=== PATIENT | female | born 1985 | race Hispanic/Latino ===

== ENCOUNTER 2019-01-09 00:12 | Emergency (ER) | payer OTHER ==
--- OUTSIDE RECORDS SUMMARY | 2019-01-09 00:15 | XMS REPORT ---
:1985 [facility] Address [address] [place] [address] Care Team Providers Name Role Phone Unavailable Unavailable Unavailable Problems This patient has no known problems. Allergies, Adverse Reactions, Alerts This patient has no known allergies or adverse reactions. Medications This patient has no known medications.
--- OUTSIDE RECORDS SUMMARY | 2019-01-09 00:15 | XMS REPORT | Clinical Summary ---
:1985 Author Organization [facility] Address [address] [place] [address] Care Team Providers Name Role Phone AntoineEvelioNubia Ke ARBORICULTURE TEACHER-C Primary Care Provider Allergies Active Allergy Reactions Severity Noted Date Comments Hydrocodone-Acetaminophen Itching 11/30/2018 "sweat, heart beats fast, itch" Medications Medication Sig Dispensed Refills Start Date End Date Status omeprazole (PriLOSEC) 20 Take 20 mg by 0 Active MG capsule mouth 2 (two) times a day. cyclobenzaprine Take 10 mg by 0 Active (FLEXERIL) 10 mg tablet mouth daily as needed for muscle spasms. Active Problems Problem Noted Date Chest pain 12/07/2018 Hyperparathyroidism 12/01/2018 Hiatal hernia 12/01/2018 Encounters Date Type Specialty Care Team Description 12/05/2018 - Hospital Encounter General Internal Jack Villegas, 12/07/2018 Cristina Norwood MD 12/01/2018 Anesthesia Event General Surgery Jyotsna Hart FNP 12/01/2018 Surgery General Surgery Jack Villegas, HIATAL HERNIA Zaki Norwood MD REPAIR WITH ROBOTIC ASSIST 12/01/2018 - Hospital Encounter General Internal Jack Villegas, 12/02/2018 Cristina Norwood MD 11/30/2018 Pre-Admit Testing Pre-Admission Jack Villegas Preop testing Appointment Testing Zaki Norwood MD (Primary Dx) after 01/08/2018 Family History Medical History Relation Name Comments Diabetes Father Diabetes Mother Heart disease Mother Relation Name Status Comments Father Alive Mother Alive Social History Tobacco Use Types Packs/Day Years Used Date Never Smoker Smokeless Tobacco: Never Used Alcohol Use Drinks/Week oz/Week Comments Yes rarely Sex Assigned at Date Recorded Not on file Job Start Date Occupation Industry Not on file Not on file Not on file Travel History Travel Start Travel End No recent travel history available. Last Filed Vital Signs Vital Sign Reading Time Taken Blood Pressure 114/57 12/07/2018 11:35 AM CERTIFIED NUCLEAR MEDICINE TECHNOLOGIST Pulse 78 12/07/2018 11:35 AM CERTIFIED NUCLEAR MEDICINE TECHNOLOGIST Temperature 36.4 C (97.5 F) 12/07/2018 11:35 AM CERTIFIED NUCLEAR MEDICINE TECHNOLOGIST Respiratory Rate 18 12/07/2018 11:35 AM CERTIFIED NUCLEAR MEDICINE TECHNOLOGIST Oxygen Saturation 100% 12/07/2018 11:35 AM CERTIFIED NUCLEAR MEDICINE TECHNOLOGIST Inhaled Oxygen Concentration - - Weight 67 kg (147 lb 9.6 oz) 12/07/2018 4:56 AM CERTIFIED NUCLEAR MEDICINE TECHNOLOGIST Height 149.9 cm (4' 11") 12/05/2018 3:58 AM CERTIFIED NUCLEAR MEDICINE TECHNOLOGIST Body Mass Index 29.81 12/07/2018 4:56 AM CERTIFIED NUCLEAR MEDICINE TECHNOLOGIST Plan of Treatment Health Maintenance Due Date Last Done Comments CERVICAL CANCER SCREENING 2006 INFLUENZA VACCINE 05/26/2018 Procedures Procedure Name Priority Date/Time Associated Comments Diagnosis FL UGI W KUB Routine 12/06/2018 2:18 Results for this PM CERTIFIED NUCLEAR MEDICINE TECHNOLOGIST procedure are in the results section. ESTIMATED GFR Routine 12/05/2018 4:40 Results for this AM CERTIFIED NUCLEAR MEDICINE TECHNOLOGIST procedure are in the results section. BASIC METABOLIC PANEL Routine 12/05/2018 4:40 Results for this AM CERTIFIED NUCLEAR MEDICINE TECHNOLOGIST procedure are in the results section. HC COMPLETE BLD COUNT Routine 12/05/2018 4:40 Results for this W/AUTO DIFF AM CERTIFIED NUCLEAR MEDICINE TECHNOLOGIST procedure are in the results section. ESTIMATED GFR Routine 12/02/2018 6:30 Results for this AM CERTIFIED NUCLEAR MEDICINE TECHNOLOGIST procedure are in the results section. BASIC METABOLIC PANEL Routine 12/02/2018 6:30 Results for this AM CERTIFIED NUCLEAR MEDICINE TECHNOLOGIST procedure are in the results section. HC COMPLETE BLD COUNT Routine 12/02/2018 6:30 Results for this W/AUTO DIFF AM CERTIFIED NUCLEAR MEDICINE TECHNOLOGIST procedure are in the results section. AR AN ELECTIVE Routine 12/01/2018 8:17 ENDOTRACHEAL AIRWAY AM CERTIFIED NUCLEAR MEDICINE TECHNOLOGIST Procedure Note - Kajal Nelson CRNA - 12/01/2018 8:17 AM CERTIFIED NUCLEAR MEDICINE TECHNOLOGIST ANESTHESIA INTUBATION Performed by: Kajal Nelson CRNA Authorized by: Evaristo Ashley MD Location: OR Urgency: Elective Difficult Airway: Yes Anesthesiologist: Evaristo Ashley MD Resident/LAUNDERER HAND/AA: Kajal Nelson CRNA Performed by: resident/LAUNDERER HAND/AA Preoxygenated with 100% O2: Yes Mask Ventilation: Easy mask Final Airway Type: Endotracheal airway Final Endotracheal Airway: ETT Cuffed: Yes Technique Used: Direct laryngoscopy Insertion Site: Oral Blade Type: Warner Laryngoscope Blade/Videolaryngoscope Blade Size: 2 ETT Size (mm): 7.0 Cuff at minimum occlusion pressure: Yes Measured from: Lips ETT to Lips (cm): 23 Placement Verified by: CO2 detection Laryngoscopic view: Grade I - full view of glottis Number of Attempts at Approach: 1 POC GLUCOSE Routine 12/01/2018 7:24 AM Results for this CERTIFIED NUCLEAR MEDICINE TECHNOLOGIST procedure are in the results section. HCG QUALITATIVE, Routine 11/30/2018 2:21 PM Preop testing Results for this SERUM SCREEN CERTIFIED NUCLEAR MEDICINE TECHNOLOGIST procedure are in the results section. TYPE AND SCREEN Routine 11/30/2018 2:21 PM Preop testing Results for this CERTIFIED NUCLEAR MEDICINE TECHNOLOGIST procedure are in the results section. HC COMPLETE BLD Routine 11/30/2018 2:21 PM Preop testing Results for this COUNT W/AUTO DIFF CERTIFIED NUCLEAR MEDICINE TECHNOLOGIST procedure are in the results section. after 01/08/2018 Results FL UGI W KUB (12/06/2018 2:18 PM CERTIFIED NUCLEAR MEDICINE TECHNOLOGIST) Narrative Performed At EXAMINATION:FL UGI W KUB RADIANT CLINICAL HISTORY:recenthernia repair now presenting with pneumothorax COMPARISON:None. TECHNIQUE:UPPER GI SERIES was performed with Gastrografin FLUOROSCOPIC TIME:0.8 minutes. Exposure=19 mGy IMPRESSION: From the narrow fabrics weaver view, retained contrast material is seen within the colon. Patient appears to be status post cholecystectomy. An IUD is within the lower pelvis. Some diaphragmatic air is also seen on the right likely due to recent surgery. 1.Esophagus:Esophagus was distensible. No leak was detected with real-time imaging. The mucosa and motility were within normal limits. There is no evidence of stricture. 2.Gastroesophageal junction:No evidence of hiatal hernia. No reflux. 3.Stomach:Status post partial gastrectomy. Otherwise normal in distensible and demonstrates normal contours and mucosal pattern. 4.Duodenum:Bulb and sweep are normal. The duodenal-jejunal junction is in the normal expected position. [facility]-[id number] Procedure Note Interface, Radiology Results Incoming - 12/06/2018 2:33 PM CERTIFIED NUCLEAR MEDICINE TECHNOLOGIST EXAMINATION: FL UGI W KUB CLINICAL HISTORY: recent hernia repair now presenting with pneumothorax COMPARISON: None. TECHNIQUE: UPPER GI SERIES was performed with Gastrografin FLUOROSCOPIC TIME: 0.8 minutes. Exposure=19 mGy IMPRESSION: From the narrow fabrics weaver view, retained contrast material is seen within the colon. Patient appears to be status post cholecystectomy. An IUD is within the lower pelvis. Some diaphragmatic air is also seen on the right likely due to recent surgery. 1. Esophagus: Esophagus was distensible. No leak was detected with real-time imaging. The mucosa and motility were within normal limits. There is no evidence of stricture. 2. Gastroesophageal junction: No evidence of hiatal hernia. No reflux. 3. Stomach: Status post partial gastrectomy. Otherwise normal in distensible and demonstrates normal contours and mucosal pattern. 4. Duodenum: Bulb and sweep are normal. The duodenal-jejunal junction is in the normal expected position. [facility]-[id number] Performing Organization Address City/[facility]/Zipcode Phone Number [facility] [phone] [place] [address] Estimated GFR (12/05/2018 4:40 AM CERTIFIED NUCLEAR MEDICINE TECHNOLOGIST)Only the most recent of2 resultswithin the time period is included. Estimated GFR >=90 mL/min/1.73 m2 [facility] CatergoryUnitsInterpretation G1 >=90 Normal or high G2 60-89Mildly decreased [id number] to moderately decreased [id number] to severely decreased G4 15-29Severely decreased G5 <15Kidney failure The eGFR was calculated using the Chronic Kidney Disease Epidemiology Collaboration (CKD-EPI) equation. Interpretation is based on recommendations of the National Kidney Foundation-Kidney Disease Outcomes Quality Initiative (NKF-KDOQI) published in 2014. Specimen Plasma specimen Performing Organization Address City/[facility]/Zipcode Phone Number [facility] DEPARTMENT OF PATHOLOGY [address] [place] [address] AND GENOMIC MEDICINE [facility] [address] CBC with platelet and differential (12/05/2018 4:40 AM CERTIFIED NUCLEAR MEDICINE TECHNOLOGIST)Only the most recent of3 resultswithin the time period is included. WBC 6.0 4.5 - 11.0 k/uL [facility] RBC 3.50 (L) 4.20 - 5.50 m/uL [facility] HGB 8.2 (L) 12.0 - 16.0 g/dL [facility] HCT 26.7 (L) 37.0 - 47.0 % [facility] MCV 76.3 (L) 82.0 - 100.0 fL [facility] MCH 23.4 (L) 27.0 - 34.0 pg [facility] MCHC 30.7 (L) 31.0 - 37.0 g/dL [facility] RDW - SD 44.7 37.0 - 55.0 fL [facility] MPV 13.1 (H) 6.9 - 11.0 fL [facility] Platelet count 164 150 - 400 K/uL [facility] Nucleated RBC 0.00 /100 WBC [facility] Neutrophils 60.4 39.0 - 69.0 % [facility] Lymphocytes 27.9 25.0 - 45.0 % [facility] Monocytes 7.1 0.0 - 10.0 % [facility] Eosinophils 4.2 0.0 - 5.0 % [facility] Basophils 0.2 0.0 - 1.0 % [facility] Immature granulocytes 0.2 0.0 - 1.0 % [facility] Specimen Blood Performing Organization Address City/State/Zipcode Phone Number [facility] DEPARTMENT OF PATHOLOGY [address] [place] [address] AND GENOMIC MEDICINE [facility] [address] [place] [address] HOSPITAL Basic metabolic panel (12/05/2018 4:40 AM CERTIFIED NUCLEAR MEDICINE TECHNOLOGIST)Only the most recent of2 resultswithin the time period is included. Sodium 142 135 - 148 mEq/L [facility] Potassium 3.7 3.5 - 5.0 mEq/L [facility] Chloride 107 98 - 112 mEq/L [facility] CO2 26 24 - 31 mEq/L [facility] Anion gap 9@ANIO 7 - 15 mEq/L [facility] BUN 6 6 - 20 mg/dL [facility] Creatinine 0.52 0.50 - 0.90 mg/dL [facility] Glucose 93 65 - 99 mg/dL [facility] Calcium 8.3 8.3 - 10.2 mg/dL [facility] Specimen Plasma specimen Performing Organization Address City/[facility]/Zipcode Phone Number [facility] DEPARTMENT OF PATHOLOGY [address] [place] [address] POC glucose (12/01/2018 7:24 AM CERTIFIED NUCLEAR MEDICINE TECHNOLOGIST) POC glucose 88 65 - 99 mg/dL [facility] Comment: HOSPITAL Meter ID: [id number] Air Bag Curer: Marv Hale Performing Organization Address City/State/Zipcode Phone Number [facility] DEPARTMENT OF PATHOLOGY [address] [place] [address] [place] [address] HOSPITAL Type and screen (11/30/2018 2:21 PM CERTIFIED NUCLEAR MEDICINE TECHNOLOGIST) ABO grouping A [facility] Rh type POS [facility] Antibody screen (gel) NEG [facility] Specimen Blood Performing Organization Address City/[facility]/Zipcode Phone Number [facility] DEPARTMENT OF PATHOLOGY [address] [place] [address] hCG qualitative, serum screen (11/30/2018 2:21 PM CERTIFIED NUCLEAR MEDICINE TECHNOLOGIST) hCG qualitative, serum NegativeComment: [facility] Sensitivity of HCG test: 25 [facility] mIU/mL Specimen Blood Performing Organization Address City/[facility]/Zipcode Phone Number [facility] DEPARTMENT OF PATHOLOGY [address] [place] [address] [place] [address] HOSPITAL after 01/08/2018 Insurance Payer Benefit Plan / Group Subscriber ID Type Phone Address [employer] [facility] xxxxxxxxx HMO Advance Directives Patient has advance care planning documents on file. For more information, please contact:Nehemiah Martinez[address] [employer] [place] [address]
[2019-01-09] MEDS ORDERED: ONDANSETRON 4 MG/2 ML VIAL ONE (00:52)
[2019-01-09] MEDS ORDERED: MORPHINE 4 MG/ML SYR ONE (00:52)
[2019-01-09 01:10] LABS: Absolute Lymphocytes (CBC) 1.7 K/uL (0.7-4.9); Absolute Monocytes 0.5 K/uL (0.1-1.3); Absolute Neutrophil 3.9 K/uL (1.8-8.0); Basophils % 0.4 % (0-1.3); Eosinophils % 3.7 % (0-4.4); Hematocrit 29.4 % (36.0-45.0); Lymphocytes % 26.3 % (15.3-44.8); MPV 10.8 fL (7.6-11.3); Monocytes % 8.2 % (3.3-12.3); RBC Red Blood Cell Count 4.04 M/uL (3.86-4.86)
[2019-01-09 01:24] LABS: ALT/SGPT 27 U/L (12-78); AST/SGOT 13 U/L (15-37); Albumin 3.4 g/dL (3.4-5.0); Alkaline Phosphatase 109 U/L (45-117); BUN Blood Urea Nitrogen 13 mg/dL (7-18); Bicarbonate 28 mmol/L (21-32); Bilirubin Direct < 0.1 mg/dL (0-0.2); Bilirubin Total 0.2 mg/dL (0.2-1.0); Glucose Level 94 mg/dL (74-106); Lipase 188 U/L (73-393); Potassium 4.1 mmol/L (3.5-5.1); Protein, Total 7.2 g/dL (6.4-8.2); Sodium Level 144 mmol/L (136-145)
[2019-01-09 03:51] LABS: Urine Specific Gravity 1.025 (1.005-1.030)
[2019-01-09 03:51] LABS: Urine Blood NEGATIVE (NEG); Urine Glucose NEGATIVE (NEG); Urine Protein NEGATIVE (NEG); Urine Specific Gravity 1.025 (1.005-1.030); Urine pH 6.5 (5.0-7.0)
--- NOTE | 2019-01-09 04:32 | ER ---
Nurse's Notes [facility] Name: Nafisa Alvares Age: 33 yrs Sex: Female : 1985 Arrival Date: 01/09/2019 Time: 00:13 Bed 18 Private MD: Diagnosis: Epigastric pain;Post operative pain;Microcytic Anemia Presentation: 01/09 00:04 Presenting complaint: EMS states: Pt reports having surgery 1 month ago for hiatal jb4 hernia repair, since then has had nausea, vomiting, and abdominal pain intermittently for 1 month. Tonight the pain is at it's worst. 00:04 Transition of care: patient was not received from another setting of care. Onset of jb4 symptoms was November 26, 2018. Risk Assessment: Do you want to hurt yourself or someone else? Patient reports no desire to harm self or others. Initial Sepsis Screen: Does the patient meet any 2 criteria? HR > 90 bpm. Yes Does the patient have a suspected source of infection? No. Patient's initial sepsis screen is negative. Care prior to arrival: None. 00:04 Method Of Arrival: EMS: [facility] jb4 00:04 Acuity: SAMAN 3 jb4 Triage Assessment: 00:15 General: Appears in no apparent distress. uncomfortable, Behavior is calm, cooperative, cc3 appropriate for age. Pain: Complains of pain in right side abdomen. EENT: No signs and/or symptoms were reported regarding the EENT system. Neuro: Level of Consciousness is awake, alert, obeys commands, Oriented to person, place, time, situation, Appropriate for age. Cardiovascular: Patient's skin is warm and dry. Respiratory: Airway is patent Respiratory effort is even, unlabored, Respiratory pattern is regular, symmetrical. GI: Abdomen is round non-distended. : No signs and/or symptoms were reported regarding the genitourinary system. Derm: No signs and/or symptoms reported regarding the dermatologic system. Musculoskeletal: Circulation, motion, and sensation intact. Range of motion: intact in all extremities. PROVINCE ARCHIVIST: 00:15 LMP 01/03/2019 cc3 Historical: - Allergies: 00:04 Vicodin; jb4 - Home Meds: 00:04 Bentyl Oral [Active]; Codeine Oral [Active]; jb4 - PMHx: 00:04 appendicitis; hietal hernia; jb4 - PSHx: 00:04 Cholecystectomy; Appendectomy; ; Hernia repair; jb4 - Immunization history:: Adult Immunizations up to date. - Social history:: Smoking status: Patient/guardian denies using tobacco, Patient/guardian denies using alcohol. - Ebola Screening: : No symptoms or risks identified at this time. Screenin:45 Abuse screen: Denies threats or abuse. Denies injuries from another. Nutritional cc3 screening: No deficits noted. Tuberculosis screening: No symptoms or risk factors identified. Fall Risk Ambulatory Aid- None/Bed Rest/Nurse Assist (0 pts). Gait- Normal/Bed Rest/Wheelchair (0 pts) Mental Status- Oriented to own ability (0 pts). Assessment: 00:15 General: see triage assessment. cc3 01:55 Reassessment: Patient appears in no apparent distress at this time. Patient and/or cc3 family updated on plan of care and expected duration. Pain level reassessed. Patient is alert, oriented x 3, equal unlabored respirations, skin warm/dry/pink. Patient came back from CT scan department, awaiting result. 02:15 Reassessment: Patient appears in no apparent distress at this time. Patient and/or cc3 family updated on plan of care and expected duration. Pain level reassessed. Patient is alert, oriented x 3, equal unlabored respirations, skin warm/dry/pink. 03:22 Reassessment: Patient appears in no apparent distress at this time. Patient and/or cc3 family updated on plan of care and expected duration. Pain level reassessed. Patient is alert, oriented x 3, equal unlabored respirations, skin warm/dry/pink. 04:02 Reassessment: Patient appears in no apparent distress at this time. Patient and/or cc3 family updated on plan of care and expected duration. Pain level reassessed. Patient is alert, oriented x 3, equal unlabored respirations, skin warm/dry/pink. 05:00 Reassessment: Patient appears in no apparent distress at this time. Patient and/or cc3 family updated on plan of care and expected duration. Pain level reassessed. Patient is alert, oriented x 3, equal unlabored respirations, skin warm/dry/pink. Dr. Kennedy discharged the patient home with prescription given. IV cannula removed and patient left ER vitally stable and ambulatory with her mother. Vital Signs: 00:04 BP 120 / 72; Pulse 103; Resp 18; Temp 98.2(O); Pulse Ox 100% ; Weight 64.86 kg (R); jb4 Height 4 ft. 11 in. (149.86 cm) (R); Pain 9/10; 01:15 BP 114 / 69; Pulse 83; Resp 18 S; Pulse Ox 100% on R/A; cc3 02:15 BP 114 / 77; Pulse 75; Resp 17 S; Pulse Ox 100% on R/A; cc3 03:30 BP 108 / 78; Pulse 73; Resp 16 S; Pulse Ox 100% on R/A; cc3 04:06 BP 100 / 67; Pulse 70; Resp 18 S; Pulse Ox 100% on R/A; cc3 04:50 BP 106 / 60; Pulse 72; Resp 18 S; Pulse Ox 99% on R/A; cc3 00:04 Body Mass Index 28.88 (64.86 kg, 149.86 cm) jb4 ED Course: 00:04 Arm band placed on right wrist. jb4 00:13 Patient arrived in ED. jb4 00:15 Toya Desai is Primary Nurse. cc3 00:15 Triage completed. jb4 00:22 Isaiah Kennedy MD is Attending Physician. ps1 00:45 Patient has correct armband on for positive identification. Bed in low position. Call cc3 light in reach. Side rails up X 1. Pulse ox on. NIBP on. 00:45 Inserted saline lock: 20 gauge in right antecubital area, using aseptic technique. cc3 Blood collected. 01:[address] via wheelchair. kw1 01:58 CT Abd/Pelvis - W/Contrast In Process Unspecified. EDMS 05:00 No provider procedures requiring assistance completed. IV discontinued, intact, cc3 bleeding controlled, No redness/swelling at site. Pressure dressing applied. Administered Medications: 00:45 Drug: morphine 4 mg Route: IVP; Site: right antecubital; cc3 01:15 Follow up: Response: No adverse reaction; Pain is decreased cc3 00:55 Drug: Zofran 4 mg Route: IVP; Site: right antecubital; cc3 01:15 Follow up: Response: No adverse reaction; Nausea is decreased; Vomiting decreased cc3 Outcome: 04:31 Discharge ordered by . ps1 05:00 Discharged to home ambulatory, with family. cc3 05:00 Condition: stable 05:00 Discharge instructions given to patient, family, Instructed on discharge instructions, follow up and referral plans. medication usage, Demonstrated understanding of instructions, follow-up care, medications, Prescriptions given X 1. 05:08 Patient left the ED. cc3 Signatures: Dispatcher [employer] EDMS Moshe Mason RN RN jb4 Isaiah Kennedy MD MD ps1 Amanda Carrero1 Toya Desai cc3
--- NOTE | 2019-01-09 04:32 | EDPHYS ---
Physician Documentation [facility] Name: Nafisa Alvares Age: 33 yrs Sex: Female : 1985 Arrival Date: 01/09/2019 Time: 00:13 Bed 18 Private MD: ED Physician Isaiah Kennedy HAND MOLDER: 01/09 00:15 LMP 01/03/2019 cc3 Historical: - Allergies: 00:04 Vicodin; jb4 - Home Meds: 00:04 Bentyl Oral [Active]; Codeine Oral [Active]; jb4 - PMHx: 00:04 appendicitis; hietal hernia; jb4 - PSHx: 00:04 Cholecystectomy; Appendectomy; ; Hernia repair; jb4 - Immunization history:: Adult Immunizations up to date. - Social history:: Smoking status: Patient/guardian denies using tobacco, Patient/guardian denies using alcohol. - Ebola Screening: : No symptoms or risks identified at this time. Vital Signs: 00:04 BP 120 / 72; Pulse 103; Resp 18; Temp 98.2(O); Pulse Ox 100% ; Weight 64.86 kg (R); jb4 Height 4 ft. 11 in. (149.86 cm) (R); Pain 9/10; 01:15 BP 114 / 69; Pulse 83; Resp 18 S; Pulse Ox 100% on R/A; cc3 02:15 BP 114 / 77; Pulse 75; Resp 17 S; Pulse Ox 100% on R/A; cc3 03:30 BP 108 / 78; Pulse 73; Resp 16 S; Pulse Ox 100% on R/A; cc3 04:06 BP 100 / 67; Pulse 70; Resp 18 S; Pulse Ox 100% on R/A; cc3 04:50 BP 106 / 60; Pulse 72; Resp 18 S; Pulse Ox 99% on R/A; cc3 00:04 Body Mass Index 28.88 (64.86 kg, 149.86 cm) jb4 MDM: 00:59 Patient medically screened. ps1 01/09 00:23 Order name: CBC with Diff; Complete Time: 01:12 ps1 01/09 00:23 Order name: Creatinine for Radiology; Complete Time: 01:38 ps1 01/09 00:23 Order name: Hepatic Function; Complete Time: 01:38 ps1 01/09 00:23 Order name: Lipase; Complete Time: :38 ps1 01/09 00:23 Order name: CMP; Complete Time: :38 ps1 01/09 01:41 Order name: Urine Dipstick--Ancillary (enter results); Complete Time: 03:52 lt1 01/09 00:23 Order name: IV Saline Lock; Complete Time: 01:00 ps1 01/09 00:23 Order name: Labs collected and sent; Complete Time: 01: ps1 01/09 00:23 Order name: CT Abd/Pelvis - W/Contrast; Complete Time: 09:22 ps1 01/09 01:42 Order name: Urine --Ancillary (enter results); Complete Time: 03:52 lt1 Administered Medications: 00:45 Drug: morphine 4 mg Route: IVP; Site: right antecubital; cc3 01:15 Follow up: Response: No adverse reaction; Pain is decreased cc3 00:55 Drug: Zofran 4 mg Route: IVP; Site: right antecubital; cc3 01:15 Follow up: Response: No adverse reaction; Nausea is decreased; Vomiting decreased cc3 Disposition: 01/09/19 04:31 Discharged to Home. Impression: Epigastric pain, Post operative pain, Microcytic Anemia. - Condition is Stable. - Discharge Instructions: Abdominal Pain, Adult, Anemia, Nonspecific. - Prescriptions for Zofran 4 mg Oral Tablet - take 1 tablet by ORAL route every 12 hours As needed; 20 tablet. - Medication Reconciliation Form, Thank You Letter, Antibiotic Education, Prescription Opioid Use form. - Follow up: Private Physician; When: Upon discharge from the Emergency Department; Reason: Further diagnostic work-up, Re-evaluation by your physician. Follow up: Emergency Department; When: As needed; Reason: Worsening of condition. - Problem is an ongoing problem. - Symptoms are unchanged. Addendum: 02/04/2019 09:24 Addendum: 33 y/o F hx of swathi, lap band, recently post op and now presenting for post p s1 operative pain. She had a hiatal hernia repair and an adjustment to her lap band intraoperatively that was reportedly questionable procedure with dissention between surgery and GI per patient. She had her surgery in outside hospital and has had persistent pain since associated with NV. BIBEMS for abdominal pain. Pain medication given STEWARD/STEWARDESS TOURIST CLASS. Pain is localized epigastric and non-radiating, rated as moderate and fluctuating. Able to tolerate small amounts of food. ROS: No DIXON, fever, chills, CP, SOB, leg swelling. + Abd pain, N,V. PHY: AOX3, NCAT, PERRL, EOMI, RRR, CTAB, Abd + epigastric tenderness. +BS. No indicators. Non-distended. Normal extremities. POC: Labs and CT abd/pelvis. No intraabdominal pathology per report. ? CBD. No leukocytosis or elevated transaminases. Home with symptomatic medications and follow up with performing surgeon or body line finisher. Pt stable. . Signatures: Dispatcher [employer] EDMS Moshe Mason RN RN jb4 Isaiah Kennedy MD MD ps1 Toya Dseai cc3 Corrections: (The following items were deleted from the chart) 01/09 05:08 04:31 01/09/2019 04:31 Discharged to Home. Impression: Epigastric pain; Post operative cc3 pain; Microcytic Anemia. Condition is Stable. Forms are Medication Reconciliation Form, Thank You Letter, Antibiotic Education, Prescription Opioid Use. Follow up: Private Physician; When: Upon discharge from the Emergency Department; Reason: Further diagnostic work-up, Re-evaluation by your physician. Follow up: Emergency Department; When: As needed; Reason: Worsening of condition. Problem is an ongoing problem. Symptoms are unchanged. ps1
[2019-01-09 05:16] VITALS: BP 106/60; O2SAT 99
--- NOTE | 2019-01-10 11:13 | RAD REPORT ---
EXAM DESCRIPTION: CT - Abdomen Pelvis W Contrast - 01/09/2019 4:32 am COMPARISON: None CLINICAL HISTORY: Abdominal pain, hiatal hernia repair TECHNIQUE: Multiple helical axial images were obtained through the abdomen and pelvis using intraven ous contrast. Initial arterial phase images were obtained through the abdomen followed by parenchymal phase images of the abdomen and pelvis. Coronal and sagittal reformatted images were obtained. All CT scans at this facility use dose modulation, iterative reconstruction, and/or weight-based dosi ng when appropriate to reduce radiation dose to as low as reasonably achievable. FINDINGS: Lung bases: There is mild dilatation of the distal esophagus. Liver: Low-attenuation is present suggestive of fatty changes. Gallbladder/biliary: Cholecystectomy changes are present. Common bile duct is dilated measuring up to 0.9 cm in width which is nonspecific in the setting of prior cholecystectomy. Pancreas: Unremarkable. No evidence of ductal enlargement. Spleen: Appears unremarkable. No splenomegaly. Adrenals: Unremarkable. Kidneys and ureters: No evidence of hydronephrosis. Normal enhancement. Bladder: Unremarkable. Pelvic organs: IUD device is in place. Bowel: Postoperative changes of the stomach noted. No evidence of bowel obstruction. No bowel wall thickening. Appendix appears surgically absent. Vasculature: Unremarkable. Peritoneum: No free air. No significant free fluid. Lymph nodes: Unremarkable. Soft tissues: A small fat-containing umbilical hernia is present. Bones: Unremarkable. IMPRESSION: No evidence for an acute process within the abdomen or pelvis. Electronically signed by: Stephane Brewer MD 01/09/2019 2:13 AM CDT Due to temporary technical issues with the PACS/Fluency reporting system, reports are being signed by the in house radiologist as a courtesy to ensure prompt reporting. The interpreting radiologist is f ully responsible for the content of the report.
== END 2019-01-09 05:08 | disposition home or self-care (01) ==
LOC: ER 00:12
DX: D50.9 Iron deficiency anemia, unspecified (principal); G89.18 Other acute postprocedural pain; Z88.5 Allergy status to narcotic agent; Z98.890 Other specified postprocedural states
CPT/HCPCS: 36415; 74177; 80053; 80076; 81003; 81025; 83690; 85025; 96374; 96375; 99285; J2405; Q9967